=== PATIENT | male | born 1940 ===

== ENCOUNTER 2016-05-04 12:40 | Emergency (ER) | payer BC, MEDICARE ==
--- NOTE | 2016-05-04 14:31 | UC ---
Respiratory Complaint HPI - HPI Summary HPI Summary: 75 y/o male patient c/o chest congestion, cough, body aches, and fever-like symptoms which began Wednesday. Cough is worse when patent lays down at night. Reports SOB with exertion, has a COPD hx states, "my O2 usually runs around 87- 92%". Denies any cardiac symptoms. - History of Current Complaint Chief Complaint: UCRespiratory Stated Complaint: COUGH,FEVER Hx Obtained From: Patient Onset/Duration: Gradual Onset Severity Initially: Mild Severity Currently: Moderate Character: Sputum Description: - Yellow sputum Aggravating Factors: Exertion Alleviating Factors: Upright Position Associated Signs And Symptoms: Positive: Dyspnea, Chills, Wheezing. Negative: Pleuritic Chest Pain, Hemoptysis, Dizziness, Edema, URI, Nasal Congestion, Hoarseness, Sinus Discomfort - Risk Factors Pulmonary Embolism Risk Factors: Negative Cardiac Risk Factors: Hypertension, CAD Pseudomonas Risk Factors: Negative Tuberculosis Risk Factors: Negative - Allergies/Home Medications Allergies/Adverse Reactions: Allergies Allergy/AdvReac Type Severity Reaction Status Date / Time Lisinopril Allergy Severe tongue Verified 05/04/16 13:55 swelling Home Medications: Home Medications Losartan/HCTZ 100/25 (NF) [Hyzaar 100/25 (NF)] 1 tab PO DAILY 05/04/16 [History Confirmed 05/04/16] PMH/Surg Hx/FS Hx/Imm Hx Previously Healthy: Yes Endocrine History Of: Denies: Diabetes, Thyroid Disease Cardiovascular History Of: Reports: Cardiac Disorders - PVD with stents, Hypertension Denies: Myocardial Infarction, Congestive Heart Failure, Atrial Fibrillation Respiratory History Of: Reports: COPD Denies: Pulmonary Embolism GI/ History Of: Denies: Ulcer, Renal Disease Neurological History Of: Denies: TIA, CVA Psychological History Of: Denies: Anxiety, Depression - Surgical History Surgical History: Yes Surgery Procedure, Year, and Place: Femerol artery stents - Family History Known Family History: Positive: Cardiac Disease - Mother CVA, Hypertension - Mother & 2 Brothers, Other - Father age 55 r/t Lung CA - Social History Alcohol Use: Weekly Substance Use Type: None Smoking Status (MU): Former Smoker Type: Cigarettes Amount Used/How Often: 2 ppd Length of Time of Smoking/Using Tobacco: 50 + yrs When Did the Patient Quit Smoking/Using Tobacco: 2006 - Immunization History Most Recent Influenza Vaccination: 01/2016 Most Recent Tetanus Shot: unknown Review of Systems Constitutional: Fatigue Skin: Negative Eyes: Negative ENT: Negative Respiratory: Shortness Of Breath - Pt states, "I am always SOB, this is nothing new", Cough Cardiovascular: Negative Gastrointestinal: Negative Genitourinary: Negative Motor: Negative Neurovascular: Negative Musculoskeletal: Negative Neurological: Negative Psychological: Negative All Other Systems Reviewed And Are Negative: Yes Physical Exam Triage Information Reviewed: Yes Appearance: No Pain Distress, Ill-Appearing Vital Signs: Initial Vital Signs Temp 99.1 F 05/04/16 13:46 Pulse 100 05/04/16 13:46 Resp 18 05/04/16 13:46 BP 144/59 05/04/16 13:46 Pulse Ox 90 05/04/16 13:46 Vital Signs Reviewed: Yes Eye Exam: Normal Eyes: Positive: Conjunctiva Clear ENT: Positive: Hearing grossly normal, Pharynx normal, Nasal congestion, TMs normal Dental Exam: Normal Dental: Negative: Cervical Lymphadenopathy Neck: Positive: Supple, Nontender, No Lymphadenopathy Respiratory Exam: Normal Respiratory: Positive: No accessory muscle use, Decreased breath sounds - Bilateral posterior lobes in all cooney, Crackles - Fine pitched expiratory crackles, cleared with coughing, Rhonchi - Right upper and middle, Wheezing - Inspiratory wheezing, Expiration - Rhonchi right anterior upper and middle lobe. , Inspiration - Wheezing auscultated in posterior upper lobes, Other: - Negative egophany Negative whispered pectoriloquy Tachypnea 22-24 RR Cardiovascular: Positive: RRR, No Murmur, Pulses Normal, Brisk Capillary Refill , Other: - Denies chest pain or tightness Abdomen Description: Positive: Nontender, No Organomegaly, Soft Bowel Sounds: Positive: Present Musculoskeletal Exam: Normal Musculoskeletal: Positive: Strength Intact Neurological Exam: Normal Neurological: Positive: Alert, Muscle Tone Normal, Fatigued Psychological Exam: Normal Skin Exam: Normal - Additional Comments Patient denies any cardiac symptoms. UC Diagnostic Evaluation - Laboratory O2 Sat by Pulse Oximetry: 95 Re-Evaluation - Re-Evaluation First Eval Re-Evaluation Time: 15:07 - O2 on RA 92-94% Change: Improved - Right anterior upper lobe expiratory rhonchi. Improvment in the right middle lobe. Posterior decreased breath sounds in all lobes Respiratory Course/Dx - Differential Dx/Diagnosis Provider Diagnoses: acute exacerbation COPD. Acute bronchitis Discharge - Discharge Plan Condition: Stable Disposition: HOME Prescriptions: Albuterol HFA INHALER* [Ventolin HFA Inhaler*] 1 - 2 puff INH Q4H PRN #1 mdi PRN Reason: wheeze, cough DOXYcycline CAP(*) [DOXYcycline 100MG CAP(*)] 100 mg PO BID #14 cap predniSONE TAB* [Deltasone TAB*] 40 mg PO DAILY #6 tab Patient Education Materials: COPD (Chronic Obstructive Pulmonary Disease) (ED) , Acute Bronchitis (ED) Referrals: Sonja Alfaro MD [Primary Care Provider] - 05/07/16 Additional Instructions: As discussed, seek immediate medical care for any cardiac symptoms or worsening SOB. Follow-up with your Primary Care provider on or Wednesday for evaluation of symptoms, unless symptoms worsen in which case go straight to the Emergency Room.
[2016-05-04] MEDS ORDERED: Albuterol/Ipratropium NEB.SOL* Albuterol 2.5 MG/Ipratropium 0.5 MG 3 ML INH ONE (14:32)
--- NOTE | 2016-05-04 15:18 | RAD ---
INDICATION: Cough. Short of breath. History of COPD COMPARISON: None TECHNIQUE: PA and lateral dual-energy views were obtained. FINDINGS: Bones/Soft Tissues: There are no acute bony findings. Cardiomediastinal: The heart is normal in size. Lungs: There is hyperinflation with interstitial changes which are likely chronic. There is no focal consolidation. Pleura: There are no pleural effusions. Other: None IMPRESSION: HYPERINFLATION WITH PRESUMED CHRONIC INTERSTITIAL CHANGE.
[2016-05-04 15:27] VITALS: BP 147/57
== END 2016-05-04 15:40 | disposition home or self-care (01) ==
LOC: UCCORT 12:40
DX: J44.1 Chronic obstructive pulmonary disease with (acute) exacerbation (principal); J20.9 Acute bronchitis, unspecified; J44.0 Chronic obstructive pulmonary disease with (acute) lower respiratory infection; Z88.8 Allergy status to other drugs, medicaments and biological substances; Z87.891 Personal history of nicotine dependence
CPT/HCPCS: 71020; 99202; A9270-GY; G0463